=== PATIENT | male | born 1985 | race Caucasian/White ===

== ENCOUNTER 2023-11-29 15:07 | Emergency (ER) | payer MEDICAID ==
[~2023-11-29] VITALS: Ht 180.3 cm; Wt 102.1 kg
[2023-11-29 15:17] VITALS: BP 123/83; RESP 16; TEMP 98.9; O2SAT 100
[2023-11-29 15:20] VITALS: PULSE 85
[2023-11-29] MEDS ORDERED: AMOX1TAB16 MT (16:17)
== END 2023-11-29 16:24 | disposition home or self-care (01) ==
LOC: ER 15:07
DX: K04.7 Periapical abscess without sinus (principal)
CPT/HCPCS: 99283

== ENCOUNTER 2024-04-03 17:02 | Emergency (ER) | payer MEDICAID ==
[~2024-04-03] VITALS: Ht 175.3 cm; Wt 100.0 kg
[~2024-04-03 17:02] MED LIST: AMOX1TAB16 MT
[2024-04-03 17:09] VITALS: BP 106/68; TEMP 98.3; O2SAT 97
[2024-04-03 19:00] VITALS: PULSE 94; RESP 16
[2024-04-03] MEDS: IBUPROFEN 600MG TABLET PO STA (19:22)
[2024-04-03] MEDS: ACETAMINOPHEN 325MG TABLET PO STA (19:22)
[2024-04-03] MEDS ORDERED: BENZ200C52 MT (19:30)
[2024-04-03] MEDS ORDERED: IBUP-2029 MT (19:30)
== END 2024-04-03 20:06 | disposition home or self-care (01) ==
LOC: ER 17:02
DX: B34.9 Viral infection, unspecified (principal); R05.9 Cough, unspecified
CPT/HCPCS: 71045; 99283; Z7610 ×2

== ENCOUNTER 2025-08-26 13:07 | Emergency (ER) | payer MEDICAID ==
[~2025-08-26] VITALS: Ht 180.3 cm; Wt 102.0 kg
[~2025-08-26 13:07] MED LIST changes: +BENZ200C52 MT; +IBUP-1455 MT
[2025-08-26 13:22] VITALS: O2SAT 98
[2025-08-26] MEDS: KETOROLAC 30MG/ML VIAL IM ONE (15:17)
[2025-08-26] MEDS: DEXAMETHASONE 10 MG/ML VIAL IV ONE (15:17)
[2025-08-26] MEDS ORDERED: AMOX1TAB16 MT (16:23)
[2025-08-26] MEDS ORDERED: METH4TAB95 MT (16:23)
[2025-08-26 16:28] VITALS: BP 116/73; PULSE 86; RESP 16; TEMP 37; O2SAT 98
[2025-08-26 16:32] LABS: INFLUENZA TYPE A Presumptive Negative (Pres. Neg.)
[2025-08-26 16:33] LABS: INFLUENZA TYPE B Presumptive Negative (Pres. Neg.)
== END 2025-08-26 16:30 | disposition home or self-care (01) ==
LOC: ER 13:07
DX: J02.9 Acute pharyngitis, unspecified (principal); Z79.899 Other long term (current) drug therapy; Z20.822 Contact with and (suspected) exposure to COVID-19
CPT/HCPCS: 99284; 96374; 87426; 87430; 87420; 87070; 87804 ×2; 96372; J1885; J1100